=== PATIENT | male | born 1950 | race Caucasian/White ===

== ENCOUNTER 2019-12-28 05:45 | Day surgery (SDC) | payer OTHER, SELFPAY ==
[2019-12-25 07:04] VITALS: BMI 43.9
[2019-12-25 09:32] VITALS: BMI 41.3
[2019-12-28 06:10] VITALS: BP 143/96; PULSE 61; RESP 18; TEMP 36; O2SAT 99
--- NOTE | 2019-12-28 06:10 | P.HP_ITS ---
Same Day Surgery H&P Indication for Procedure/HPI DATE OF PROCEDURE: December 28, 2019 CHIEF COMPLAINT/INDICATIONFOR SURGICAL PROCEDURE: Bleeding per rectum PREOP DIAGNOSIS: Bleeding per rectum PLANNED PROCEDRUE: Operation Date: 12/28/19 07:00 Proposed Procedures p Colonoscopy [id number] K62.5 K64.9(Not Applicable) - Alfred Chapman MD s Exam Under Anesthesia(Not Applicable) - Alfred Chapman MD s Hemorroidectomy(Not Applicable) - Alfred Chapman MD This is a pleasant 69 years old gentleman comes today as a referral because of concern of blood per rectum, patient had a colonoscopy about 3 years ago and he denies weight loss, he does report that his sister of rectal cancer at age of 73 and she used to have hemorrhoids as well and he comes today concerned that he does have hemorrhoids and he is worried about potential rectal cancer. Patient describes his bleeding per rectum is intermittent and denies any rectal pain at this point Patient comes today for the planned procedure ROS All systems have been reviewed negative except as for the above Medications/Allergies* Home Medications Medication Instructions Recorded Confirmed Type amlodipine 2.5 mg tablet 2.5 mg PO DAILY 10/07/19 12/25/19 History aspirin 81 mg tablet,delayed 81 mg PO DAILY 10/07/19 12/25/19 History release furosemide 40 mg tablet 40 mg PO DAILY 10/07/19 12/25/19 History lisinopril 10 mg tablet 10 mg PO DAILY 10/07/19 12/25/19 History meloxicam 7.5 mg tablet 7.5 mg PO DAILY 10/07/19 12/25/19 History metoprolol tartrate 50 mg tablet 50 mg PO DAILY 10/07/19 12/25/19 History atorvastatin 20 mg tablet 10 mg PO DAILY tab 11/26/19 12/25/19 History calcium carbonate 650 mg calcium 1,300 mg PO DAILY tab 11/26/19 12/25/19 History (1,625 mg) tablet citalopram 20 mg tablet 30 mg PO DAILY tab 11/26/19 12/25/19 History docusate sodium 100 mg capsule 100 mg PO TID PRN cap 11/26/19 12/25/19 History finasteride 5 mg tablet 5 mg PO DAILY 11/26/19 12/25/19 History fluticasone propionate 50 1 spray INTRANASAL BID 11/26/19 12/25/19 History mcg/actuation nasal spray,suspension hydrochlorothiazide 25 mg tablet 25 mg PO DAILY 11/26/19 12/25/19 History metformin 1,000 mg tablet 1,000 mg PO BID 11/26/19 12/25/19 History omega-3 fatty acids 1,000 mg 2,000 mg PO DAILY cap 11/26/19 12/25/19 History capsule pantoprazole 20 mg tablet,delayed 20 mg PO DAILY 11/26/19 12/25/19 History release prazosin 2 mg capsule 2 mg PO DAILY cap 11/26/19 12/25/19 History quetiapine 400 mg tablet 200 mg PO BID tab 11/26/19 12/25/19 History Allergies/Adverse Reactions Allergy/AdvReac Type Severity Reaction Status Date / Time Penicillins Allergy RASH Verified 11/26/19 14:49 Pertinent History/Comorbid Conditions* Medical History (Updated 11/26/19 @ 14:50 by Alfred Chapman MD) Bipolar affect, depressed BPH (benign prostatic hyperplasia) Cervicalgia Constipation Depression Diabetes GERD (gastroesophageal reflux disease) Hemorrhoids Hypercholesterolemia Hypertension Sleep apnea Surgical History (Updated 11/26/19 @ 14:50 by Alfred Chapman MD) H/O colonoscopy 2 years ago Family History (Updated 11/26/19 @ 09:08 by Kyleigh Kennedy LPN) Diabetes Sister CAD (coronary artery disease) Cancer Family/Other aunt breast, 2 uncles lung Sister one lung, one breast Denies family history of Anesthesia complication Bleeding disorder Social History Smoking and tobacco status: never smoked Alcohol intake: current Lives independently: Yes Marital status: Single Current occupational status: retired History of recent travel: Yes ([employer] [place]) Out of state: No Pertinent Exam Findings alert, oriented x 3, clear to auscultation bilaterally, regular rate & rhythm and procedure specific exam findings (Abdominal examination nontender nondistended soft/morbidly obese) Recommendations Surgery/Procedure today (Colonoscopy with examination under anesthesia and possible hemorrhoidectomy) Coding Level of Care Code Acute Board Filler for Carmen Toney
[2019-12-28] MEDS: sodium chloride 0.9% 1,000 ML 30 ML IV (06:24)
[2019-12-28 06:26] LABS: Glucose Point of Care 137 mg/dL (70-110)
--- NOTE | 2019-12-28 06:43 | ANES.PREANE2 ---
Pre-Anesthetic Assessment Pre-Anesthetic Assessment: Height/Weight: Height 1.83 m Weight 138.346 kg Temp Pulse Resp BP Pulse Ox 96.8 F L 61 18 143/96 99 12/28/19 06:10 12/28/19 06:10 12/28/19 06:10 12/28/19 06:10 12/28/19 06:10 Preop Diagnosis: Bleeding per rectum Proposed Procedure: Operation Date: 12/28/19 07:00 Proposed Procedures p Colonoscopy [id number] K62.5 K64.9(Not Applicable) - Alfred Chapman MD s Exam Under Anesthesia(Not Applicable) - Alfred Chapman MD s Hemorroidectomy(Not Applicable) - Alfred Chapman MD Was Beta Caroline taken within 24 hours: Yes Last intake: Intake Last Liquid Date 12/27/19 Last Liquid Time 20:00 Last Intake: 21:00 Social: Social History: No alcohol and No tobacco Exam: Pre-Anes Outpt Exam: alert, oriented x 3, clear to auscultation bilaterally and regular rate & rhythm Airway: Submandibular: WNL Cervical ROM: WNL MP: 2 Dentition: False (upper) Pulmonary: Pulmonary: COPD and Sleep apnea CV/HEM: CV/HEM: HTN : : None reported Hepatic: Hepatic: None reported GI: GI: GERD (controlled) Metabolic: Metabolic: DM ([id number]) and Morbid obesity Musc/skel: Musc/skel: OA/DJD Neuropsych: Neuropsych: Anxiety, Bipolar and Depression Anesthetic Plan: ASA status: 3 Anesthesia: MAC Risk of > 500 ml blood loss (7ml/kg in children): No Meds/Allergies Current Medications: Current Medications Generic Name Dose Route Start Last Admin Trade Name Freq PRN Reason Stop Dose Admin Sodium Chloride 1,000 mls @ 30 ml s/hr 12/28/19 06:15 12/28/19 06:24 Sodium Chloride 0.9% IV 12/29/19 06:14 30 mls/hr .Q24H JAYJAY Administration PFSH Anesthesia PFSH: Medical History Bipolar affect, depressed BPH (benign prostatic hyperplasia) Cervicalgia Constipation Depression Diabetes GERD (gastroesophageal reflux disease) Hemorrhoids Hypercholesterolemia Hypertension Sleep apnea Surgical History H/O colonoscopy 2 years ago Family History Family/Other Cancer aunt breast, 2 uncles lung Sister Cancer one lung, one breast Diabetes Other CAD (coronary artery disease) Denies family history of Anesthesia complication Bleeding disorder Social History Smoking and tobacco status: never smoked Alcohol intake: current Lives independently: Yes Marital status: Single Current occupational status: retired History of recent travel: Yes ([facility]) Out of state: No Data Anesthesia Other Labs: Laboratory Results - last 48 hr 12/28/19 06:23 POC Glucose 137 Cardiac Studies: No Data to Display
[2019-12-28 07:17] VITALS: BP 113/76; PULSE 58; RESP 16; TEMP 36.1; O2SAT 97
[2019-12-28 07:27] VITALS: BP 145/85; PULSE 55; RESP 18; O2SAT 98
== END 2019-12-28 07:35 | disposition home or self-care (01) ==
PROVIDERS: Family Provider Family Medicine; PCP Nurse Practitioner Family; Visit Provider Surgery
PROC: 0DJD8ZZ Inspection of Lower Intestinal Tract, Via Natural or Artificial Opening Endoscopic (ICD-10-PCS; CPT 45378; principal; 2019-12-28 07:00)
DX: K62.5 Hemorrhage of anus and rectum (principal); Z79.82 Long term (current) use of aspirin; N40.0 Benign prostatic hyperplasia without lower urinary tract symptoms; E11.9 Type 2 diabetes mellitus without complications; G47.30 Sleep apnea, unspecified; Z79.84 Long term (current) use of oral hypoglycemic drugs; J44.9 Chronic obstructive pulmonary disease, unspecified; I10 Essential (primary) hypertension; K21.9 Gastro-esophageal reflux disease without esophagitis; E66.01 Morbid (severe) obesity due to excess calories; Z68.41 Body mass index [BMI] 40.0-44.9, adult
CPT/HCPCS: 12345; 36416; 45378; 82962; J2704; J7030

== ENCOUNTER 2021-03-28 13:52 | Emergency (ER) | payer OTHER, MEDICARE, SELFPAY ==
[2021-03-28 13:57] VITALS: BP 200/98; PULSE 60; RESP 16; TEMP 36.8; O2SAT 95
--- NOTE | 2021-03-28 14:25 | ECG_ITS ---
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 Measurements Intervals [place] Rate: 60 P: 26 CO: 221 QRS: -83 QRSD: 106 T: 65 QT: 435 QTc: 437 Interpretive Statements SINUS RHYTHM WITH FIRST DEGREE AV BLOCK PATTERN CONSISTENT WITH PULMONARY DISEASE LEFT ANTERIOR FASCICULAR BLOCK [QRS AXIS <= -45, QR IN I, RS IN II] No previous ECG available for comparison Electronically Signed On 03-28-2021 22:06:59 CDT by Latesha Lebron M.D. [id number] f
--- NOTE | 2021-03-28 14:26 | XR_ITS ---
WS: [id number] XR chest 1V portable [id number] REASON FOR EXAM: chest pain FINDINGS: Compared to previous examination of 01/12/2007, thoracic aorta has become more tortuous and ectatic wi th tortuosity origin of the innominate artery. Heart size is at the upper limits of normal Calcified granulomatous disease in both hemithoraces. No active pulmonary parenchymal or pleural disease Mild degenerative changes in the mid and lower thoracic spine. XR/XR chest 1V portable [id number] IMPRESSION: No acute chest abnormality.
--- NOTE | 2021-03-28 16:25 | ECG_ITS ---
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 Measurements Intervals [place] Rate: 57 P: 70 [place]: 232 QRS: -79 QRSD: 105 T: 68 QT: 444 QTc: 434 Interpretive Statements SINUS BRADYCARDIA WITH FIRST DEGREE AV BLOCK LEFT ANTERIOR FASCICULAR BLOCK [QRS AXIS <= -45, QR IN I, RS IN II] Compared to ECG 03/28/2021 14:02:38 Sinus rhythm no longer present Electronically Signed On 03-28-2021 22:24:58 CDT by Latesha Lebron M.D. [id number] f
--- NOTE | 2021-03-28 18:30 | W.ED.SOB ---
HPI - SOB/Dyspnea General: Chief Complaint: Shortness of Breath/Dyspnea Stated Complaint: SOB Time Seen by Provider: 03/28/21 18:26 History of Present Illness: HPI Narrative: This patient is a 70-year-old male who presents to the emergency department complaint of cough and shortness of breath has been increasing over the past several weeks. Patient denies fever. Patient states he quit smoking 20 years ago but has smoked pot regularly up until about a week ago. Patient states he stopped smoking the pot because the cough is getting so bad. Patient states he has had several rounds of issues of mold growth in his home including his CPAP machine. Patient states he thinks this might be contributing to his cough. Will do medical evaluation treat as needed MD elicited complaint: cough Timing: constant Severity: mild Relieving factors: nothing Associated symptoms: Deny abdominal pain, chest pain, extremity pain, fever(s), lightheadedness, nausea, palpitations or vomiting Review of Systems General: Reports: 10 or more systems reviewed and unremarkable except in HPI and below Const: Denies: fever(s), chills, body aches or fatigue Eyes: Denies: change in vision or blurry vision ENMT: Denies: throat pain, hoarseness or mouth pain Card: Denies: chest pain, palpitations, irregular heart rhythm, edema, swelling of feet/ankles or lightheadedness Resp: Reports: dyspnea and non-productive cough; Denies: productive cough, wheezing or pain on inspiration GI: Denies: abdominal pain, nausea or vomiting : Denies: flank pain, dysuria, urinary frequency, urinary urgency or urinary hesitancy Musc: Denies: neck pain, back pain, extremity pain, extremity swelling, joint pain, joint swelling, joint redness, joint warmth or limited range of motion Skin/Breast: Denies: rash, pruritus, erythema or skin tenderness Neuro: Denies: headache(s), numbness in extremities or weakness in extremities Psych: Denies: anxiety or depression PFS ED PFSH: Medical History (Updated 03/28/21 @ 21:22 by David Stephens MD) Bipolar affect, depressed BPH (benign prostatic hyperplasia) Cervicalgia Constipation Depression Diabetes GERD (gastroesophageal reflux disease) Hemorrhoids Hypercholesterolemia Hypertension Sleep apnea Surgical History H/O colonoscopy 2 years ago Family History Family/Other Cancer aunt breast, 2 uncles lung Sister Cancer one lung, one breast Diabetes Other CAD (coronary artery disease) Denies family history of Anesthesia complication Bleeding disorder Social History Smoking and tobacco status: never smoked Alcohol intake: current Lives independently: Yes Marital status: Single Current occupational status: retired History of recent travel: Yes ([employer] [place]) Out of state: No Physical Exam Const: COMMON NORMALS: no acute distress, average body habitus, patient oriented x3, no limitations, healthy appearing, alert and well nourished HENMT: COMMON NORMALS: normocephalic, atraumatic, hearing grossly normal bilaterally, external ears normal, EAC's normal, TM's normal bilaterally, Normal external nose present, Normal nasal mucous membranes and turbinates present, moist oral mucous membranes, oropharynx normal, dentition normal and gingiva normal HEAD & SCALP: normocephalic and atraumatic NOSE: Normal external nose present and Normal nasal mucous membranes and turbinates present EXTERNAL EAR: Yes external ears normal EXTERNAL AUDITORY CANAL: EAC's normal TYMPANIC MEMBRANE: TM's normal bilaterally Neck/C-Spine: COMMON NORMALS: full ROM, no lymphadenopathy, supple, no meningeal signs, no JVD, Thyroid normal and No carotid bruits THYROID: Thyroid normal Chest: COMMONS NORMALS: normal inspection of the chest, normal palpation of entire chest wall, normal inspection of the breasts and normal palpation of the breasts Breast/axilla inspection: Yes normal inspection of the breasts BREAST/AXILLA PALPATION: Yes normal palpation of the breasts Resp: COMMON NORMALS: normal respiratory effort, No retractions, No use of accessory muscles, clear to auscultation bilaterally and percussion normal AUSCULTATION: clear to auscultation bilaterally PERCUSSION: percussion normal Cardio: COMMON NORMALS: no JVD, regular rate, regular rhythm, S1 normal heart sound present, S2 normal heart sound present, No gallops present (Cardio), No clicks present (Cardio), No murmurs present (Cardio), No rub (Cardio) and Peripheral pulses 2+ throughout RATE: regular rate RHYTHM: regular rhythm HEART SOUNDS: S1 normal heart sound present and S2 normal heart sound present PERIPHERAL PULSES: Peripheral pulses 2+ throughout GI: COMMON NORMALS: Normal to inspection, nondistended, normoactive bowel sounds present, Soft to palpation, non-tender, No hepatosplenomegaly present, no masses and no bruits PALPATION: Yes Soft to palpation and Yes No hepatosplenomegaly present : COMMON NORMALS: Yes no CVA tenderness BLADDER/KIDNEY EXAM: Yes no CVA tenderness Back/Pelvis: COMMON NORMALS: no CVA tenderness, thoracic and lumbar spine normal to inspection, no thoracic nor lumbar tenderness, thoraco-lumbar ROM normal and straight leg raise negative bilaterally Extremity: COMMON NORMALS: normal to inspection, full ROM, capillary refill normal, no joint enlargement, no clubbing, cyanosis or edema, no calf tenderness and no pedal edema Neuro: COMMON NORMALS: patient oriented x3 SENSORIUM/ORIENTATION: Yes alert MENINGEAL SIGNS: Yes no meningeal signs Course ED course: Negative evaluation in the emergency department for any acute findings. Patient be discharged home patient is to continue all home medications follow-up with PCP in 2 to 3 days. Vital Signs: Vital signs: Vital Signs Temperature 98.3 F 03/28/21 13:57 Pulse Rate 60 03/28/21 13:57 Respiratory Rate 16 03/28/21 13:57 Blood Pressure 200/98 03/28/21 13:57 Pulse Oximetry 95 03/28/21 13:57 MDM - SOB/Dyspnea MDM Narrative: Medical decision making narrative: Negative evaluation in the emergency department for any acute findings. Patient be discharged home patient is to continue all home medications follow-up with PCP in 2 to 3 days. Lab Data: Labs: Lab Results 03/28/21 03/28/21 03/28/21 19:35 19:35 19:35 WBC 5.9 10^3/uL 10^3/ uL (4.0-10.0) RBC 5.04 10^6/uL 10^6 /uL (4.1-5.3) Hgb 15.1 g/dL g/dL (11.7-16.6) Hct 43.7 % % (42.0-52.0) MCV 86.7 fl fl (80-94) MCH 30.0 pg pg (28.0-34.0) MCHC 34.6 g/dL g/dL (30.0-36.0) RDW 13.9 % % (12.1-15.1) Plt Count 211 10^3/cmm 10^3 /cmm (130-400) MPV 11.2 fL H fL (7.4-10.4) Neut % (Auto) 69.4 % % Lymph % (Auto) 17.5 % % [place] % (Auto) 11.7 % % Eos % (Auto) 0.7 % % Baso % (Auto) 0.5 % % Neut # (Auto) 4.08 10^3/uL 10^3 /uL (1.8-7.7) Lymph # (Auto) 1.0 10^3/uL 10^3/ uL (0.8-4.8) [place] # (Auto) 0.7 10^3/uL 10^3/ uL (0.2-0.9) Eos # (Auto) 0.0 10^3/uL 10^3/ uL (0.0-0.8) Baso # (Auto) 0.0 10^3/uL 10^3/ uL (0.0-0.1) Nucleated RBC % (a uto) 0 % % Nucleated RBCs # 0.0 /100WBC /100W BC D-Dimer Sodium 138 mmol/L mmol/L (136-145) Potassium 3.3 mmol/L L mmol /L (3.5-5.1) Chloride 97 mmol/L L mmol/ L (98-107) Carbon Dioxide 26 mmol/L mmol/L (22-29) Anion Gap 18.3 (5-19) BUN 12 mg/dL mg/dL (8-23) Creatinine 0.7 mg/dL mg/dL (0.7-1.2) GFR Calculation Not Reportable Glucose 125 mg/dL H mg/dL (65-115) Calculated Osmolal ity 287 mOsm/kg mOsm/ kg (285-295) Calcium 9.5 mg/dL mg/dL (8.5-10.5) Total Bilirubin 0.6 mg/dL mg/dL (0.15-1.2) AST 37 U/L U/L (0-40) ALT 19 U/L U/L (0-41) Alkaline Phosphata se 87 IU/L IU/L (40-130) Troponin T Baselin e 15 ng/L ng/L (0-15) NT-Pro-B Natriuret Pep 276 pg/mL H pg/mL (0-125) Total Protein 7.2 g/dL g/dL (6.6-8.7) Albumin 4.7 g/dL g/dL (3.5-5.2) Globulin 2.5 g/dL g/dL (1.3-4.6) SARS-CoV-2 Ag (Rap id) 03/28/21 03/28/21 19:35 19:50 WBC RBC Hgb Hct MCV MCH MCHC RDW Plt Count MPV Neut % (Auto) Lymph % (Auto) [place] % (Auto) Eos % (Auto) Baso % (Auto) Neut # (Auto) Lymph # (Auto) [place] # (Auto) Eos # (Auto) Baso # (Auto) Nucleated RBC % (a uto) Nucleated RBCs # D-Dimer 0.83 ug/mIFEU H u g/mIFEU (0-0.59) Sodium Potassium Chloride Carbon Dioxide Anion Gap BUN Creatinine GFR Calculation Glucose Calculated Osmolal ity Calcium Total Bilirubin AST ALT Alkaline Phosphata se Troponin T Baselin e NT-Pro-B Natriuret Pep Total Protein Albumin Globulin SARS-CoV-2 Ag (Rap id) Negative (Negative) Imaging Data^: CXR: Attestation: I personally reviewed and interpreted this imaging study as follows: Radiologist's impression: IMPRESSION: No acute chest abnormality. EKG Data^: EKG 1: Attestation: I personally reviewed and interpreted this EKG as follows: EKG Interpretation Date: 03/28/21 EKG interpretation time: 18:39 Interpretation: Sinus bradycardia with first-degree AV block left anterior fascicular block heart rate 57 EKG 2: Attestation: I personally reviewed and interpreted this EKG as follows: EKG Interpretation Date: 03/28/21 EKG interpretation time: 20:17 Prior EKG tracings: available for review Interpretation: Sinus rhythm with first-degree AV block left axis deviation possible old EKG changes Discharge Plan Discharge Patient Disposition: Home Clinical Impression: Cough Condition: Stable Prescriptions: New albuterol sulfate 90 mcg/actuation HFA aerosol inhaler 2 puff inhalation Q4H PRN (Reason: shortness of breath or wheezing) Qty: 8.5 RF: 0 No Action lisinopril 10 mg tablet 10 mg PO DAILY RF: 0 furosemide 40 mg tablet 40 mg PO DAILY RF: 0 meloxicam 7.5 mg tablet 7.5 mg PO DAILY RF: 0 amlodipine 2.5 mg tablet 2.5 mg PO DAILY RF: 0 metoprolol tartrate 50 mg tablet 50 mg PO DAILY RF: 0 aspirin 81 mg tablet,delayed release (DR/EC) 81 mg PO DAILY RF: 0 metformin 1,000 mg tablet 1,000 mg PO BID RF: 0 hydrochlorothiazide 25 mg tablet 25 mg PO DAILY RF: 0 pantoprazole [Protonix] 20 mg tablet,delayed release (DR/EC) 20 mg PO DAILY RF: 0 prazosin 2 mg capsule 2 mg PO DAILY RF: 0 fluticasone propionate 50 mcg/actuation spray,suspension 1 spray INTRANASAL BID RF: 0 calcium carbonate 650 mg calcium (1,625 mg) tablet 1,300 mg PO DAILY RF: 0 atorvastatin 20 mg tablet 10 mg PO DAILY RF: 0 citalopram 20 mg tablet 30 mg PO DAILY RF: 0 docusate sodium 100 mg capsule 100 mg PO TID PRN (Reason: Constipation) RF: 0 omega-3 fatty acids [Fish Oil Concentrate] 1,000 mg capsule 2,000 mg PO DAILY RF: 0 finasteride 5 mg tablet 5 mg PO DAILY RF: 0 quetiapine 400 mg tablet 200 mg PO BID RF: 0 lactulose 10 gram/15 mL (15 mL) solution 10 gm PO BID 7 Days Qty: 210 RF: 0 Discharge Orders: Discharge ED (Routine); Ordered 03/28/21 Ordered By: David Stephens Referrals: Edwin Lizarraga FNP [Primary Care Provider] - Discharge Diet: Advance as tolerated Discharge Activity: Resume usual activity Patient Instructions: Opioid Safety Activity Restrictions/Additional Instructions: Continue all home medications. May take [id number] cough suppressant as needed. Follow-up with primary care physician as instructed. May need outpatient pulmonary function testing. Coding Level of Care Code ED Joinery Patternmaker for Carmen Fwd Exam Comprehensive
[2021-03-28 19:51] LABS: Basophils % 0.5 %; Eosinophils % 0.7 %; Hematocrit 43.7 % (42.0-52.0); Hemoglobin 15.1 g/dL (11.7-16.6); Lymphocytes % 17.5 %; Mean Corpuscular HGB Conc 34.6 g/dL (30.0-36.0); Mean Corpuscular Volume 86.7 fl (80-94); Mean Platelet Volume 11.2 fL (7.4-10.4); Monocytes # 0.7 10^3/uL (0.2-0.9); Monocytes % 11.7 %; Neutrophils # 4.08 10^3/uL (1.8-7.7); Neutrophils % 69.4 %; Nucleated Red Blood Cells % 0 %; Platelet Count 211 10^3/cmm (130-400); Red Blood Count 5.04 10^6/uL (4.1-5.3); Red Cell Distribution Width 13.9 % (12.1-15.1); White Blood Count 5.9 10^3/uL (4.0-10.0)
[2021-03-28 20:08] LABS: D Dimer 0.83 ug/mIFEU (0-0.59)
[2021-03-28 20:13] LABS: SARS Covid-2 Antigen Negative (Negative)
[2021-03-28 20:15] LABS: Troponin(5th) Baseline 15 ng/L (0-15)
[2021-03-28 20:24] LABS: Alanine Aminotransferase 19 U/L (0-41); Albumin Level 4.7 g/dL (3.5-5.2); Alkaline Phosphatase 87 IU/L (40-130); Anion Gap 18.3 (5-19); Aspartate Amino Transferase 37 U/L (0-40); Blood Urea Nitrogen 12 mg/dL (8-23); Calcium 9.5 mg/dL (8.5-10.5); Carbon Dioxide 26 mmol/L (22-29); Chloride 97 mmol/L (98-107); Globulin 2.5 g/dL (1.3-4.6); Glucose 125 mg/dL (65-115); NT Pro B Type Natriuretic Pept 276 pg/mL (0-125); Osmolality Calculated 287 mOsm/kg (285-295); Potassium 3.3 mmol/L (3.5-5.1); Sodium 138 mmol/L (136-145); Total Bilirubin 0.6 mg/dL (0.15-1.2); Total Protein 7.2 g/dL (6.6-8.7)
--- NOTE | 2021-03-28 20:25 | ECG_ITS ---
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 Measurements Intervals [place] Rate: 62 P: 66 DC: 230 QRS: -69 QRSD: 96 T: 60 QT: 428 QTc: 437 Interpretive Statements SINUS RHYTHM WITH FIRST DEGREE AV BLOCK LEFT AXIS DEVIATION [QRS AXIS < -30] Compared to ECG 03/28/2021 18:39:46 Left-axis deviation now present Sinus bradycardia no longer present Left anterior fascicular block no longer present Electronically Signed On 03-28-2021 22:22:48 CDT by Latesha Lebron M.D. [id number] f
[2021-03-28 21:43] VITALS: BP 144/82; PULSE 78; RESP 20; O2SAT 96
[2021-03-28 21:44] LABS: Troponin 5 2HR 13.54 ng/L (0-15)
[2021-03-28 21:45] LABS: Troponin 5 2HR Delta -1.46 ABS# (0-10)
== END 2021-03-28 21:40 | disposition home or self-care (01) ==
PROVIDERS: Physician Assistant; Emergency Provider Emergency Medicine; PCP Nurse Practitioner Family
DX: R05.9 Cough, unspecified (principal); Z79.82 Long term (current) use of aspirin; Z79.84 Long term (current) use of oral hypoglycemic drugs; E11.9 Type 2 diabetes mellitus without complications; I10 Essential (primary) hypertension; Z20.822 Contact with and (suspected) exposure to COVID-19
CPT/HCPCS: 71045; 80053; 83880; 84484; 85025; 85378; 87426; 93005; 99282

== ENCOUNTER → 2021-10-31 13:35 | Outpatient (BNVA) | payer OTHER, SELFPAY | PROVIDERS: PCP Nurse Practitioner Family; Visit Provider Urology | DX: N40.1 Benign prostatic hyperplasia with lower urinary tract symptoms (principal) | CPT/HCPCS: 51741; 51798; 81003; 84153; 99203 ==

== ENCOUNTER → 2021-12-28 08:10 | Outpatient (BNVA) | payer OTHER, SELFPAY | PROVIDERS: PCP Emergency Medicine Emergency Medical Services; Visit Provider Urology | DX: N40.1 Benign prostatic hyperplasia with lower urinary tract symptoms (principal) | CPT/HCPCS: 51741; 51798; 81003; 99213 ==

== ENCOUNTER 2022-11-22 14:31 | Emergency (ER) | payer OTHER, SELFPAY ==
[2022-11-22 14:39] VITALS: BP 186/100; PULSE 51; RESP 18; TEMP 36.7; O2SAT 97; BMI 37.5
--- NOTE | 2022-11-22 14:43 | XR_ITS ---
WS: [id number] Left clavicle, 2 views, 11/22/2022 Clinical Data: trauma Comparison: None. Findings: No fractures or dislocations are seen. The AC joint is normal. The soft tissues are unremarkable. The left sternoclavicular joint is normal. XR/[place] [id number] Impression: Negative left clavicle.
--- NOTE | 2022-11-22 14:46 | ED_ITS ---
HPI - Extremity Problem General: Chief complaint: Extremity Injury, Upper Stated complaint: collarbone dislocated sent from mo Time Seen by Provider: 11/22/22 14:35 Source: patient Mode of arrival: ambulatory History of Present Illness: 72-year-old male presents emergency room complaining of discomfort at the sternoclavicular joint on the left states has been happening for the last 3 weeks. He is relates it to being what he describes as fighting in his sleep . He does not recall any fall or particular trauma. [facility] were concerned he dislocated his collarbone and referred him to the emergency room. He has no difficulty breathing. There is no tenting of the skin. No previous injury. MD Complaint: joint pain Onset (ago): week(s) (3) Pain Consistency: intermittent Location: left Quality: aching Radiation: none Relieving factors: nothing Exacerbating factors: nothing Associated symptoms: Deny arthralgias, chest pain, fever(s), myalgias, rash or short of breath Review of Systems Const: Denies: fever(s), chills, fatigue or malaise ENMT: Denies: throat pain, ear or mastoid pain, nasal discharge or nasal congestion Card: Denies: chest pain Resp: Denies: dyspnea, productive cough or non-productive cough GI: Denies: abdominal pain, nausea, vomiting, hematemesis, coffee ground emesis, diarrhea, constipation, bloating, hematochezia or melena : Denies: flank pain, dysuria, urinary frequency or urinary urgency Musc: Denies: neck pain or back pain Skin/Breast: Denies: rash or pruritus [facility] ED PFSH: Medical History Bipolar affect, depressed Cervicalgia Constipation Depression Diabetes GERD (gastroesophageal reflux disease) Hemorrhoids Hypercholesterolemia Hypertension Sleep apnea Surgical History H/O colonoscopy 2 years ago Family History Family/Other Cancer aunt breast, 2 uncles lung Sister Cancer one lung, one breast Diabetes Father , IN HIS 40'S MVA (motor vehicle accident) Mother , IN HER 70'S No problems noted. Other CAD (coronary artery disease) Denies family history of Anesthesia complication Bleeding disorder Social History Smoking and tobacco status: never smoked Alcohol intake: never Substance/Drug Use: current Substance/Drug use frequency: daily Other substance/drug use details: medical marijuana Lives independently: Yes Marital status: service: Yes Current occupational status: disabled Physical Exam Const: COMMON NORMALS: no acute distress GENERAL APPEARANCE: cooperative and comfortable ORIENTATION/CONSCIOUSNESS: Yes awake, Yes oriented to person, Yes oriented to place and Yes oriented to time HENMT: COMMON NORMALS: normocephalic, atraumatic and hearing grossly normal bilaterally HEAD & SCALP: normocephalic and atraumatic Resp: COMMON NORMALS: normal respiratory effort, No retractions, No use of accessory muscles and clear to auscultation bilaterally AUSCULTATION: clear to auscultation bilaterally Cardio: COMMON NORMALS: regular rate, regular rhythm and No murmurs present (Cardio) RATE: regular rate RHYTHM: regular rhythm Extremity: COMMON NORMALS: normal to inspection, capillary refill normal, no clubbing, cyanosis or edema, no calf tenderness and no pedal edema Neuro: SENSORIUM/ORIENTATION: Yes oriented to person, Yes oriented to place and Yes oriented to time Skin: COMMON NORMALS: no rashes or lesions noted GENERAL SKIN EXAM: no rashes or lesions noted Course Vital Signs: Vital signs: Vital Signs Temperature 98.0 F 11/22/22 14:39 Pulse Rate 56 L 11/22/22 15:03 Respiratory Rate 18 11/22/22 15:03 Blood Pressure 183/90 11/22/22 15:03 Pulse Oximetry 98 11/22/22 15:03 Oxygen Delivery Me thod Room Air 11/22/22 15:03 MDM - Extremity (Nontraumatic) Medical Decision Making X-ray the clavicle is normal no but osteolytic llesions for some mild hypertrophy of the joint on physical exam is unremarkable. Suspect some of this is positional some is osteoarthritic. We will discharge him home can use meloxicam previously prescribed. Referral to orthopedics for further evaluation. Lab Data Radiology Impressions Clavicle X-Ray 11/22/22 14:43 Impression: Negative left clavicle. Discharge Plan Discharge Patient Disposition: Home Clinical Impression: Sternoclavicular joint pain Condition: Stable Prescriptions: No Action lisinopril 10 mg tablet 10 mg PO DAILY furosemide 40 mg tablet 40 mg PO DAILY meloxicam 7.5 mg tablet 7.5 mg PO DAILY amlodipine 2.5 mg tablet 2.5 mg PO DAILY metoprolol tartrate 50 mg tablet 50 mg PO DAILY aspirin 81 mg tablet,delayed release (DR/EC) 81 mg PO DAILY metformin 1,000 mg tablet 1,000 mg PO BID hydrochlorothiazide 25 mg tablet 25 mg PO DAILY pantoprazole [Protonix] 20 mg tablet,delayed release (DR/EC) 20 mg PO DAILY prazosin 2 mg capsule 2 mg PO DAILY fluticasone propionate 50 mcg/actuation spray,suspension 1 spray INTRANASAL BID Rx Instructions: administer into each nostril calcium carbonate 650 mg calcium (1,625 mg) tablet 1,300 mg PO DAILY atorvastatin 20 mg tablet 10 mg PO DAILY citalopram 20 mg tablet 30 mg PO DAILY docusate sodium 100 mg capsule 100 mg PO TID PRN (Reason: Constipation) omega-3 fatty acids [Fish Oil Concentrate] 1,000 mg capsule 2,000 mg PO DAILY finasteride 5 mg tablet 5 mg PO DAILY quetiapine 400 mg tablet 200 mg PO BID lactulose 10 gram/15 mL (15 mL) solution 10 gm PO BID 7 Days Qty: 210 0RF tamsulosin 0.4 mg capsule 0.4 mg PO .at bedtime Qty: 90 3RF albuterol sulfate 90 mcg/actuation HFA aerosol inhaler 2 puff inhalation Q4H PRN (Reason: shortness of breath or wheezing) Qty: 8.5 0RF Discharge Orders: Discharge ED (Routine); Ordered 11/22/22 Ordered By: Jaleel Keenan Referrals: Sandoval Campos DO [Primary Care Provider] - Discharge Diet: Usual diet Discharge Activity: Increase activity as tolerated Patient Instructions: Opioid Safety, Pain Management Activity Restrictions/Additional Instructions: You were seen today for pain at the left sternoclavicular joint. There is some hypertrophy at this joint but it is otherwise relatively normal. Recommend that you follow-up with orthopedics manager portable will make follow-up appointment for you. Use previously prescribed meloxicam for any discomfort. Coding Level of Care Code ED Web Content Executive for Carmen Toney
[2022-11-22 15:03] VITALS: BP 183/90; PULSE 56; RESP 18; O2SAT 98
--- NOTE | 2022-11-23 08:16 | DCPLANNER ---
Addendum entered by Kathy Morton 11/28/22 10:09: Patient had a follow up appointment scheduled with ortho - patient did attend appointment. Addendum entered by Kathy Morton 11/27/22 10:14: Patient has a follow up appointment scheduled for Sunday, November 27, 2022 at 2:45 with Shane Levine at ortho. Original Note: communication and outreach manager had message to schedule a follow up appointment for patient with ortho. communication and outreach manager sent patients information to the front office staff at ortho. Patients information will be printed and reviewed. Clinic will call patient with appointment information.
== END 2022-11-22 15:17 | disposition home or self-care (01) ==
PROVIDERS: Emergency Provider Family Medicine; PCP Emergency Medicine Emergency Medical Services
DX: M25.59 Pain in other specified joint (principal); Z79.82 Long term (current) use of aspirin; Z79.84 Long term (current) use of oral hypoglycemic drugs; E11.9 Type 2 diabetes mellitus without complications; I10 Essential (primary) hypertension
CPT/HCPCS: 73000; 99283

== ENCOUNTER → 2022-11-27 14:37 | Outpatient (BNVA) | payer OTHER, SELFPAY | PROVIDERS: PCP Emergency Medicine Emergency Medical Services; Referring Provider Family Medicine; Visit Provider Physician Assistant | DX: M25.512 Pain in left shoulder (principal) | CPT/HCPCS: 99203 ==

== ENCOUNTER 2024-03-25 23:15 | Outpatient (CLI) | payer OTHER, SELFPAY | END 2024-03-25 23:16 | disposition home or self-care (01) | LOC: SLEEP 23:16 | PROVIDERS: PCP Emergency Medicine Emergency Medical Services; Visit Provider Family Medicine | DX: G47.33 Obstructive sleep apnea (adult) (pediatric) (principal) | CPT/HCPCS: 95810 ==

== ENCOUNTER 2024-04-18 19:08 | Emergency (ER) | payer OTHER, MEDICARE, SELFPAY ==
[2024-04-18 19:15] VITALS: PULSE 95; RESP 16; TEMP 36.7; O2SAT 97; BMI 34.2
[2024-04-18 19:37] VITALS: BP 117/89; PULSE 97; RESP 16; O2SAT 99
[2024-04-18 19:44] VITALS: BP 117/89; PULSE 91; O2SAT 97
--- NOTE | 2024-04-18 20:11 | W.ED.GENADLT ---
HPI - General Adult General: Chief complaint: Headache Stated complaint: Bp pressure high. chills n/v Time Seen by Provider: 04/18/24 19:23 History of Present Illness: This patient is a 73-year-old white male who presents to the emergency department concerned about his blood pressure. He states it has been elevated in the mornings. This morning it was 202/108. States he did have some chills last night. He has a mild headache. No chest pain or shortness of breath. Patient is mainly concerned about his blood pressure tonight. He is on lisinopril 10 mg/day, amlodipine 2.5 mg/day and prazosin 2 mg/day. Associated symptoms: Reports headache(s) Related Data Home Medications Medication Instructions Recorded Confirmed amlodipine 2.5 mg tablet 2.5 mg PO DAILY 10/07/19 06/25/23 aspirin 81 mg tablet,delayed 81 mg PO DAILY 10/07/19 06/25/23 release furosemide 40 mg tablet 40 mg PO DAILY 10/07/19 06/25/23 lisinopril 10 mg tablet 10 mg PO DAILY 10/07/19 06/25/23 meloxicam 7.5 mg tablet 7.5 mg PO DAILY 10/07/19 06/25/23 metoprolol tartrate 50 mg tablet 50 mg PO DAILY 10/07/19 06/25/23 atorvastatin 20 mg tablet 10 mg PO DAILY 11/26/19 06/25/23 calcium carbonate 1,300 mg PO DAILY 11/26/19 06/25/23 citalopram 20 mg tablet 30 mg PO DAILY 11/26/19 06/25/23 docusate sodium 100 mg capsule 100 mg PO TID PRN Constipation 11/26/19 06/25/23 finasteride 5 mg tablet 5 mg PO DAILY 11/26/19 06/25/23 fluticasone propionate 50 1 spray intranasal BID 11/26/19 06/25/23 mcg/actuation nasal spray,suspension hydrochlorothiazide 25 mg tablet 25 mg PO DAILY 11/26/19 06/25/23 metformin 1,000 mg tablet 1,000 mg PO BID 11/26/19 06/25/23 omega-3 fatty acids 1,000 mg 2,000 mg PO DAILY 11/26/19 06/25/23 capsule (Fish Oil Concentrate) pantoprazole 20 mg tablet,delayed 20 mg PO DAILY 11/26/19 06/25/23 release (Protonix) prazosin 2 mg capsule 2 mg PO DAILY 11/26/19 06/25/23 quetiapine 400 mg tablet 200 mg PO BID 11/26/19 06/25/23 Previous Rx's Medication Instructions Recorded lactulose 10 gram/15 mL (15 mL) 10 gm (15 mL) PO BID 7 days #210 mL 11/26/19 oral solution albuterol sulfate 90 mcg/actuation 2 puff inhalation Q4H PRN 03/28/21 aerosol inhaler shortness of breath or wheezing #8.5 grams tamsulosin 0.4 mg capsule 0.4 mg PO .at bedtime #90 caps 10/31/21 azithromycin 250 mg tablet See Rx Instructions PO .COMPLEX #6 06/25/23 tabs prednisone 20 mg tablet 40 mg (2 x 20 mg) PO daily #10 tabs 06/25/23 Allergies Allergy/AdvReac Type Severity Reaction Status Date / Time Penicillins Allergy RASH Verified 06/25/23 10:52 Review of Systems General: Reports: 10 or more systems reviewed and unremarkable except in HPI and below Const: Reports: chills Neuro: Reports: headache(s) PFSH ED PFSH: Medical History Bipolar affect, depressed Cervicalgia Constipation Depression Diabetes GERD (gastroesophageal reflux disease) Hemorrhoids Hypercholesterolemia Hypertension Sleep apnea Surgical History H/O colonoscopy 2 years ago Family History Family/Other Cancer aunt breast, 2 uncles lung Sister Cancer one lung, one breast Diabetes Father , IN HIS 40'S MVA (motor vehicle accident) Mother , IN HER 70'S No problems noted. Other CAD (coronary artery disease) Denies family history of Anesthesia complication Bleeding disorder Social History Smoking and tobacco/nicotine status: never used tobacco/nicotine Alcohol intake: never Substance/Drug Use: current Substance/Drug use frequency: daily Other substance/drug use details: medical marijuana Lives independently: Yes Marital status: service: Yes Current occupational status: disabled Physical Exam Const: COMMON NORMALS: no acute distress, patient oriented x3 and no limitations GENERAL APPEARANCE: cooperative and comfortable HENMT: COMMON NORMALS: normocephalic, atraumatic, Normal nasal mucous membranes and turbinates present, moist oral mucous membranes and oropharynx normal HEAD & SCALP: normal to inspection, normocephalic and atraumatic FACE & SINUS: normal facial exam NOSE: Normal nasal mucous membranes and turbinates present Eye: COMMON NORMALS: Equal, round and reactive pupils present, EOMs intact bilaterally and conjunctivae normal GENERAL EYE: appearance normal, both eyes and all related structures CONJUNCTIVA: Yes conjunctivae normal PUPIL: Yes Equal, round and reactive pupils present Neck/C-Spine: COMMON NORMALS: supple and no JVD Chest: COMMONS NORMALS: normal inspection of the chest Resp: COMMON NORMALS: normal respiratory effort and clear to auscultation bilaterally AUSCULTATION: clear to auscultation bilaterally Cardio: COMMON NORMALS: no JVD, regular rate, regular rhythm, No gallops present (Cardio), No murmurs present (Cardio) and No rub (Cardio) RATE: regular rate RHYTHM: regular rhythm GI: COMMON NORMALS: Normal to inspection, nondistended, normoactive bowel sounds present, Soft to palpation and non-tender AUSCULTATION: Yes normoactive bowel sounds PALPATION: Yes Soft to palpation : COMMON NORMALS: Yes no CVA tenderness BLADDER/KIDNEY EXAM: Yes no CVA tenderness Back/Pelvis: COMMON NORMALS: no CVA tenderness and thoracic and lumbar spine normal to inspection Extremity: COMMON NORMALS: normal to inspection Neuro: COMMON NORMALS: patient oriented x3 and CN's II-XII intact bilaterally Psych: COMMON NORMALS: mental status grossly normal, Normal thought process present and cooperative THOUGHT PROCESS: Normal thought process present Skin: COMMON NORMALS: no rashes or lesions noted, turgor normal and no jaundice GENERAL SKIN EXAM: no rashes or lesions noted and turgor normal Course Vital Signs: Vital signs: Vital Signs Temperature 98.0 F 04/18/24 19:15 Pulse Rate 91 04/18/24 19:44 Respiratory Rate 16 04/18/24 19:37 Blood Pressure 117/89 04/18/24 19:44 Pulse Oximetry 97 04/18/24 19:44 Oxygen Delivery Me thod Room Air 11/02/24 19:37 MDM - General Adult Medical Decision Making Patient's blood pressure here is 117/89. Patient is asymptomatic. He was reassured. Recommended he keep track of his blood pressures and follow-up with his primary care provider next week for ongoing management of his hypertension. He was discharged in stable condition. No radiology studies performed this visit Discharge Plan Discharge Patient Disposition: Home Clinical Impression: Labile blood pressure Condition: Stable Prescriptions: No Action lisinopril 10 mg tablet 10 mg PO DAILY furosemide 40 mg tablet 40 mg PO DAILY meloxicam 7.5 mg tablet 7.5 mg PO DAILY amlodipine 2.5 mg tablet 2.5 mg PO DAILY metoprolol tartrate 50 mg tablet 50 mg PO DAILY aspirin 81 mg tablet,delayed release (DR/EC) 81 mg PO DAILY metformin 1,000 mg tablet 1,000 mg PO BID hydrochlorothiazide 25 mg tablet 25 mg PO DAILY pantoprazole [Protonix] 20 mg tablet,delayed release (DR/EC) 20 mg PO DAILY prazosin 2 mg capsule 2 mg PO DAILY fluticasone propionate 50 mcg/actuation spray,suspension 1 spray INTRANASAL BID Rx Instructions: administer into each nostril calcium carbonate 650 mg calcium (1,625 mg) tablet 1,300 mg PO DAILY atorvastatin 20 mg tablet 10 mg PO DAILY citalopram 20 mg tablet 30 mg PO DAILY docusate sodium 100 mg capsule 100 mg PO TID PRN (Reason: Constipation) omega-3 fatty acids [Fish Oil Concentrate] 1,000 mg capsule 2,000 mg PO DAILY finasteride 5 mg tablet 5 mg PO DAILY quetiapine 400 mg tablet 200 mg PO BID lactulose 10 gram/15 mL (15 mL) solution 10 gm PO BID 7 Days Qty: 210 0RF tamsulosin 0.4 mg capsule 0.4 mg PO .at bedtime Qty: 90 3RF azithromycin 250 mg tablet See Rx Instructions PO .COMPLEX Qty: 6 0RF Rx Instructions: For 250 mg dose pack: take 500 mg today (day 1), then 250 mg for 4 days (days 2-5) PO prednisone 20 mg tablet 40 mg PO daily Qty: 10 0RF albuterol sulfate 90 mcg/actuation HFA aerosol inhaler 2 puff inhalation Q4H PRN (Reason: shortness of breath or wheezing) Qty: 8.5 0RF Discharge Orders: Discharge ED (Routine); Ordered 04/18/24 Ordered By: Go Wilks Referrals: Sandoval Campos DO [Primary Care Provider] - Patient Instructions: Hypertension Activity Restrictions/Additional Instructions: Keep track of your blood pressures and follow-up with your primary care provider next week for ongoing management. Coding Level of Care Code ED Event Coordinator Marketing And Sales for Carmen Toney
== END 2024-04-18 19:45 | disposition home or self-care (01) ==
PROVIDERS: Emergency Provider Emergency Medicine; PCP Emergency Medicine Emergency Medical Services
DX: R09.89 Other specified symptoms and signs involving the circulatory and respiratory systems (principal); Z79.82 Long term (current) use of aspirin; Z79.84 Long term (current) use of oral hypoglycemic drugs; E11.9 Type 2 diabetes mellitus without complications; I10 Essential (primary) hypertension
CPT/HCPCS: 99281